=== PATIENT | male | born 1980 | race Caucasian/White ===

== ENCOUNTER 2018-03-18 20:57 | Emergency (ER) | payer SELFPAY ==
--- NOTE | 2018-03-18 21:41 | EDM.PDOC ---
ED HPI GENERAL MEDICAL PROBLEM - General Chief Complaint: Bite:Animal, Insect Stated Complaint: ALLERGIC REACTION Time Seen by Provider: 03/18/18 21:06 Source of Information: Reports: Patient History Limitations: Reports: No Limitations - History of Present Illness INITIAL COMMENTS - FREE TEXT/NARRATIVE: Spider bite; this is a 37 year old male presents to ER for spider bite. reports at 02:30 am today, felt a sharp bite, found a spider in the bed. Since then has a tiny puncture wound with scant serous discharge with surrounding redness. has the spider in a baggy for exam. concerns of left wrist pain and axilla tenderness. denies fever, chills, nausea, vomiting, sore throat or any other symptoms. 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, Other (see below) Other Treatments DRIVE AWAY DRIVER: none Left Inner Wrist Pain Score (Numeric/FACES): 3 - Related Data Allergies Allergy/AdvReac Type Severity Reaction Status Date / Time bee venom protein (honey bee) Allergy Airway Verified 03/18/18 21:17 Tightness Home Meds: Home Meds NK [No Known Home Meds] 03/18/18 [History] Past Medical History Musculoskeletal History: Reports: Other (See Below) Other Musculoskeletal History: heel fracture Social & Family History - Family History Family Medical History: Unobtainable - Tobacco Use Smoking Status *Q: Never Smoker - Caffeine Use Caffeine Use: Reports: Energy Drinks, Soda - Alcohol Use Days Per Week of Alcohol Use: 1 Number of Drinks Per Day: 2 Total Drinks Per Week: 2 - Recreational Drug Use Recreational Drug Use: No ED ROS GENERAL - Review of Systems Review Of Systems: See Below Constitutional: Reports: No Symptoms HEENT: Reports: No Symptoms Respiratory: Reports: No Symptoms Cardiovascular: Reports: No Symptoms Endocrine: Reports: No Symptoms GI/Abdominal: Reports: No Symptoms : Reports: No Symptoms Skin: Reports: Rash, Erythema, Wound, Change in Color Neurological: Reports: No Symptoms Psychiatric: Reports: No Symptoms Hematologic/Lymphatic: Reports: No Symptoms Immunologic: Reports: No Symptoms ED EXAM, ANIMAL BITE - Physical Exam Exam: See Below General Appearance: Alert, WD/WN, No Apparent Distress Eye Exam: Bilateral Eye: EOMI, Normal Inspection, PERRL Ears: Normal External Exam, Normal Canal, Hearing Grossly Normal, Normal TMs Nose: Normal Inspection Throat/Mouth: Normal Inspection, Normal Lips, Normal Teeth, Normal Gums, Normal Oropharynx, Normal Voice, No Airway Compromise Head: Atraumatic, Normocephalic Neck: Normal Inspection, Supple, Non-Tender, Full Range of Motion Respiratory/Chest: No Respiratory Distress, Lungs Clear, Normal Breath Sounds, No Accessory Muscle Use, Chest Non-Tender Cardiovascular: Normal Peripheral Pulses, Regular Rate, Rhythm, No Edema, No Gallop, No JVD, No Murmur, No Rub Peripheral Pulses: 2+: Radial (L), Radial (R) GI/Abdominal: Normal Bowel Sounds Back Exam: Normal Inspection, Full Range of Motion Extremities: Redness (left wrist. scant serous discharge with surrounding erythema.) Neurological: Alert, Oriented, Normal Cognition, Normal Gait, No Motor/Sensory Deficits Psychiatric: Normal Mood, Tearful Skin Exam: Rash, Other (redness and skin tense. ) Lymphadenopathy: Bilateral: No Adenopathy Lymphatic: No Adenopathy Course - Vital Signs Last Recorded V/S: Last Vital Signs Temp Pulse 68 03/18/18 21:29 Resp 18 03/18/18 21:29 BP 140/97 H 03/18/18 21:29 Pulse Ox 98 03/18/18 21:29 - Orders/Labs/Meds Meds: Medications Discontinued Medications Generic Name Dose Route Start Last Admin Trade Name Monserrat PRN Reason Stop Dose Admin Methylprednisolone Sodium Succinate 125 mg 03/18/18 21:36 Solu-Medrol IM 03/18/18 21:37 ONETIME ONE - Re-Assessments/Exams Free Text/Narrative Re-Assessment/Exam: 03/18/18 21:37 insect bite to right wrist, at 02:30am. -Solumedrol 125mg im -will discharge to home -medrol dose pack -take benadryl 25mg 1-2 tabs every 4 to 6 hours for next 2 days then as needed -monitor for increased redness, then if not improved in next 12 hours, then start Keflex as directed -return to ER for any worsen of symptoms or if has any shortness of breath, fever, chills or not improving. Departure - Departure Time of Disposition: 22:06 Disposition: Home, Self-Care 01 Condition: Good Clinical Impression: Insect bite of wrist, left, infected Qualifiers: Encounter type: initial encounter Qualified Code(s): S60.862A - Insect bite ( nonvenomous) of left wrist, initial encounter - Discharge Information *PRESCRIPTION DRUG MONITORING PROGRAM REVIEWED*: Not Applicable *COPY OF PRESCRIPTION DRUG MONITORING REPORT IN PATIENT SAMRA: Not Applicable Instructions: Cellulitis, Adult, [id number], Insect Bite, Adult, [id number] Referrals: PCP,None [Primary Care Provider] - Forms: ED Department Discharge Care Plan Goals: insect bite to right wrist, at 02:30am. -Solumedrol 125mg im -will discharge to home -medrol dose pack -take benadryl 25mg 1-2 tabs every 4 to 6 hours for next 2 days then as needed -monitor for increased redness, then if not improved in next 12 hours, then start Keflex as directed -return to ER for any worsen of symptoms or if has any shortness of breath, fever, chills or not improving. - Problem List & Annotations (1) Insect bite of wrist, left, infected SNOMED Code(s): 20446811 Code(s): S60.862A - INSECT BITE (NONVENOMOUS) OF LEFT WRIST, INITIAL ENCOUNTER; L08.9 - LOCAL INFECTION OF THE SKIN AND SUBCUTANEOUS TISSUE, UNSP; W57.XXXA - BIT/STUNG BY NONVENOM INSECT & OTH NONVENOM ARTHROPODS, INIT Status : Acute Priority: High Current Visit: Yes Qualifiers: Encounter type: initial encounter Qualified Code(s): S60.862A - Insect bite (nonvenomous) of left wrist, initial encounter; L08.9 - Local infection of the skin and subcutaneous tissue, unspecified; W57.XXXA - Bitten or stung by nonvenomous insect and other nonvenomous arthropods, initial encounter - Problem List Review Problem List Initiated/Reviewed/Updated: Yes - Assessment/Plan Plan: insect bite to right wrist, at 02:30am. -Solumedrol 125mg im -will discharge to home -medrol dose pack -take benadryl 25mg 1-2 tabs every 4 to 6 hours for next 2 days then as needed -monitor for increased redness, then if not improved in next 12 hours, then start Keflex as directed -return to ER for any worsen of symptoms or if has any shortness of breath, fever, chills or not improving.
[2018-03-18] MEDS: methylPREDNISolone Sodium Succinate 125 MG/2 ML SDV IM ONE (21:47)
== END 2018-03-18 22:06 | disposition home or self-care (01) ==
LOC: JP.ED 20:57
DX: S60.862A Insect bite (nonvenomous) of left wrist, initial encounter (principal); Z91.030 Bee allergy status; W57.XXXA Bitten or stung by nonvenomous insect and other nonvenomous arthropods, initial encounter
CPT/HCPCS: 96372; 99283; J2930

== ENCOUNTER 2020-07-15 15:21 | Emergency (ER) | payer BC ==
[2020-07-15] MEDS ORDERED: Bacitracin Oint 1 GM U/D Packet TOP ONE (16:04)
[2020-07-15] MEDS ORDERED: Lidocaine 1% with EPINEPHrine 1:100,000 50 ML MDV SUBCUT STA (16:04)
--- NOTE | 2020-07-15 16:07 | EDM.PDOC ---
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 into his hand which then got caught on the gait - Related Data Allergies Allergy/AdvReac Type Severity Reaction Status Date / Time bee venom protein (honey bee) Allergy Airway Verified 07/15/20 15:36 Tightness Home Meds: Home Meds NK [No Known Home Meds] 03/18/18 [History] Past Medical History Musculoskeletal History: Reports: Other (See Below) Other Musculoskeletal History: heel fracture Social & Family History - Family History Family Medical History: Unobtainable - Tobacco Use Tobacco Use Status *Q: Never Tobacco User - Caffeine Use Caffeine Use: Reports: Energy Drinks, Soda ED ROS GENERAL - Review of Systems Review Of Systems: See Below Skin: Reports: Wound ED EXAM, SKIN/RASH Exam: See Below Text/Narrative:: Examination of the hand there is a 3 cm laceration dorsal surface of the left hand completely through the dermis Exam Limited By: No Limitations General Appearance: Alert, WD/WN, No Apparent Distress ED SKIN PROCEDURES - Laceration/Wound Repair Left Hand Appearance: Subcutaneous, Linear Distal NVT: Neuro & Vascular Intact, No Tendon Injury Anesthetic Type: Local Local Anesthesia - Lidocaine (Xylocaine): 1% with EPI Local Anesthetic Volume: 2cc Skin Prep: Saline Saline Irrigation (cc's): 120 Exploration/Debridement/Repair: Wound Explored, In a Bloodless Field, Explored to Base Closed with: Sutures Lac/Wound length In cm: 3 Suture Size: 4-0 # of Sutures: 4 Suture Type: Prolene Suture Size: 4-0 # of Sutures: 2 Repaired with: Vicryl Tetanus Status Addressed: Yes Complications: No Course - Vital Signs Last Recorded V/S: Last Vital Signs Temp 96.7 F L 07/15/20 15:42 Pulse 80 07/15/20 15:42 Resp 16 07/15/20 15:42 BP 163/57 H 07/15/20 15:42 Pulse Ox 99 07/15/20 15:42 - Orders/Labs/Meds Meds: Medications Discontinued Medications Generic Name Dose Route Start Last Admin Trade Name Monserrat PRN Reason Stop Dose Admin Bacitracin 1 dose 07/15/20 16:04 07/15/20 16:36 Bacitracin Oint 1 Gm TOP 07/15/20 16:05 1 dose ONETIME ONE Administration Lidocaine/Epinephrine 20 ml 07/15/20 16:04 07/15/20 16:36 Xylocaine 1% With Epinephrine 1:100,000 SUBCUT 07/15/20 16:05 20 ml NOW STA Administration Departure - Departure Time of Disposition: 16:47 Disposition: Home, Self-Care 01 Condition: Fair Clinical Impression: Laceration of left hand Qualifiers: Encounter type: initial encounter Foreign body presence: without foreign body Qualified Code(s): S61.412A - Laceration without foreign body of left hand, initial encounter - Discharge Information Instructions: Wound Care, Adult Referrals: Myra Santillan DO [Primary Care Provider] - Forms: ED Department Discharge Additional Instructions: Suture removal in 10 days, follow-up with primary care or return to emergency department for suture removal follow wound care instruction sheet Sepsis Event Note (ED) - Evaluation Sepsis Screening Result: No Definite Risk - Focused Exam Vital Signs: Vital Signs Temp Pulse Resp BP Pulse Ox 07/15/20 15:42 96.7 F L 80 16 163/57 H 99 07/15/20 15:34 96.7 F L 80 16 163/57 H 99 - Assessment/Plan Plan: Assessment Acuity = acute Site and laterality = 3 cm laceration left hand Etiology = secondary trauma Manifestations = none Location of injury = Home Lab values = none Plan Suture removal in 10 days follow wound care instruction sheet This note was dictated using webme recognition software please call with any questions on syntax or grammar.
== END 2020-07-15 16:56 | disposition home or self-care (01) ==
LOC: JP.ED 15:21
DX: S61.412A Laceration without foreign body of left hand, initial encounter (principal); Z91.030 Bee allergy status; W23.0XXA Caught, crushed, jammed, or pinched between moving objects, initial encounter
CPT/HCPCS: 12042; 99282-25

== ENCOUNTER 2021-08-16 23:09 | Emergency (ER) | payer BC | END 2021-08-17 00:40 | disposition home or self-care (01) | LOC: JP.ED 23:09 | DX: S90.31XA Contusion of right foot, initial encounter (principal); Z87.891 Personal history of nicotine dependence; Z91.030 Bee allergy status; Z86.16 Personal history of COVID-19; W55.22XA Struck by cow, initial encounter | CPT/HCPCS: 73630-26-RT; 73630-RT; 99283; 99285 ==

== ENCOUNTER 2024-07-04 18:30 | Emergency (ER) | payer BC ==
[2024-07-04 19:29] LABS: BASOPHILS ABSOLUTE AUTO 0.09 K/uL (0.00-0.10); BASOPHILS PERCENT AUTO 0.8 % (0.1-1.3); EOSINOPHILS ABSOLUTE AUTO 0.24 K/uL (0.00-0.40); EOSINOPHILS PERCENT AUTO 2.2 % (0.0-5.4); HEMATOCRIT 42.4 % (38.4-49.7); HEMOGLOBIN 14.7 g/dL (12.9-16.9); IMMATURE GRAN ABSOLUTE AUTO 0.04 K/uL (0.00-0.23); IMMATURE GRAN PERCENT AUTO 0.4 % (0.0-0.7); LYMPHOCYTES ABSOLUTE AUTO 3.36 K/uL (0.8-3.3); LYMPHOCYTES PERCENT AUTO 30.6 % (11.4-47.7); MEAN CORPUSCULAR HEMOGLOBIN 30.4 pg (31.6-35.5); MEAN CORPUSCULAR HGB CONC 34.7 g/dL (31.6-35.5); MEAN CORPUSCULAR VOLUME 87.8 fL (81.4-99.0); MONOCYTES ABSOLUTE AUTO 0.95 K/uL (0.20-0.90); MONOCYTES PERCENT AUTO 8.7 % (3.3-12.6); NEUTROPHILS PERCENT AUTO 57.3 % (40.0-78.1); PLATELET COUNT,PLT 302 K/uL (130-375); RED BLOOD CELL COUNT 4.83 M/uL (4.14-5.76)
[2024-07-04 19:44] LABS: CALCIUM 8.7 mg/dL (8.5-10.1); CREATININE 1.1 mg/dL (0.8-1.3); EST CRCL DRUG DOSING (CG) 90.33 mL/min; POTASSIUM,K 3.8 mmol/L (3.6-5.2)
[2024-07-04 19:46] LABS: ANION GAP 14.8 mmol/L (5.0-14.0)
== END 2024-07-04 21:42 | disposition home or self-care (01) ==
LOC: JP.ED 18:30
DX: R60.0 Localized edema (principal); Z86.16 Personal history of COVID-19; Z79.899 Other long term (current) drug therapy; Z91.030 Bee allergy status
CPT/HCPCS: 36415; 80048; 85025; 85379; 93971-RT; 99284